=== PATIENT | male | born 1955 | race Caucasian/White ===

== ENCOUNTER 2016-12-05 13:27 | Emergency (ER) | payer BC, OTHER ==
[2016-12-05] MEDS ORDERED: VANCOMYCIN HCL INJ 1000 MG VIAL IV ONE (16:09)
--- NOTE | 2016-12-05 16:13 | ER Document Report ---
ED Medical Screen (RME) - General TRAVEL OUTSIDE OF THE U.S. IN LAST 30 DAYS: No - General Chief Complaint: Leg Injury Stated Complaint: LEG INJURY Time Seen by Provider: 12/05/16 15:49 Notes: 61-year-old male presented emergency department for bone protruding through his left AKA. Patient states he had an AKA on his left knee in May 2016. 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 Patient's primary care physician is at the [place] clinic. [facility]. Patient's surgery was completed by Dr. Wilson in [place]. (CONNIE LANGE) Past Medical History Renal/ Medical History: Denies: Hx Peritoneal Dialysis Physical Exam - Vital signs Vitals: Temp Pulse Resp BP Pulse Ox 97.8 F 85 18 111/73 98 12/05/16 14:08 12/05/16 14:08 12/05/16 14:08 12/05/16 14:08 12/05/16 14:08 - Notes Notes: GENERAL: Alert, interacts well. No acute distress. LUNGS: No respiratory distress. HEART: Regular rate. EXTREMITIES: Left AKA, small amount of bone protruding, serous discharge, tenderness to palpation with minimal erythema. (CONNIE LANGE) Course - Consults Dr. Cintron Time consulted: 15:50 - Re-evaluation Re-evalutation: 12/05/16 16:39 Surgery was initially performed by Dr. Rivera at [facility]. Dr. Cintron is happy to care for this patient however for the best outcome for being able to continue to use the prosthesis he recommends transfer to the person who did the original surgery. If the person who did the original surgery he is unwilling or unable to see him Dr. Cintron is happy to see the patient instead. Additionally he is happy to discuss the patient further with the original surgeon. Patient and family agreement with transfer. I did discuss this with Dr. Del Valle who will be care of the patient on the main part of the emergency department (ARIES ZACARIAS) - Vital Signs Vital signs: Temp Pulse Resp BP Pulse Ox 97.8 F 85 18 111/73 98 12/05/16 14:08 12/05/16 14:08 12/05/16 14:08 12/05/16 14:08 12/05/16 14:08 - Consults Dr. Cintron Reason for consultation: 12/05/16 15:[address] Cintron about patient; he will come down to the emergency department to evaluate patient. 12/05/16 16:00 Dr. Cintron evaluated patient; states he should be transferred to where he had his surgery done. (CONNIE LANEG) Scribe Documentation - Scribe Written by Scribe:: Natalya Field, 12/05/2016, 16:16 acting as scribe for DrRadha:: Keyonna
[2016-12-05 16:48] LABS: ABSOLUTE BASOPHILS # (AUTO) 0.1 10^3/uL (0.0-0.2); ABSOLUTE EOSINOPHILS # (AUTO) 0.5 10^3/uL (0.0-0.6); ABSOLUTE LYMPHOCYTES (AUTO) 4.3 10^3/uL (0.5-4.7); ABSOLUTE NEUT (AUTO) 10.2 10^3/uL (1.7-8.2); BASOPHILS % (AUTO) 0.8 % (0-2); EOSINOPHILS % (AUTO) 3.1 % (0-6); HEMATOCRIT 43.3 % (37.9-51.0); HEMOGLOBIN 14.3 g/dL (13.5-17.0); HGB HCT DIFFERENCE -0.4; LYMPHOCYTES % (AUTO) 26.4 % (13-45); MEAN CORPUSCULAR HEMOGLOBIN 30.1 pg (27.0-33.4); MEAN CORPUSCULAR VOLUME 91 fl (80-97); MONOCYTES % (AUTO) 6.4 % (3-13); RED BLOOD COUNT 4.74 10^6/uL (4.35-5.55); RED CELL DISTRIBUTION WIDTH 15.7 % (11.5-14.0); SEGMENTED NEUTROPHILS % (AUTO) 63.3 % (42-78); WHITE BLOOD COUNT 16.2 10^3/uL (4.0-10.5)
[2016-12-05] MEDS ORDERED: NORMAL SALINE 1000 ML 1,000 ML IV ONE (16:56)
[2016-12-05] MEDS ORDERED: AMPICILLIN SOD/SULBACTAM 3 GM VIAL IV ONE (16:56)
[2016-12-05 18:00] LABS: ALANINE AMINOTRANSFERASE 24 U/L (21-72); ALBUMIN 4.5 g/dL (3.5-5.0); ALKALINE PHOSPHATASE 101 U/L (38-126); ANION GAP 12 (5-19); ASPARTATE AMINO TRANSFERASE 21 U/L (17-59); BILIRUBIN,DIRECT 0.5 mg/dL (0.0-0.4); BILIRUBIN,TOTAL 0.6 mg/dL (0.2-1.3); BLOOD UREA NITROGEN 14 mg/dL (7-20); CALCIUM 9.8 mg/dL (8.4-10.2); CARBON DIOXIDE 22 mmol/L (22-30); CHLORIDE 102 mmol/L (98-107); CREATININE RESULT 0.95 mg/dL (0.52-1.25); GLUCOSE 90 mg/dL (75-110); POTASSIUM 5.1 mmol/L (3.6-5.0); SODIUM 136.4 mmol/L (137-145); TOTAL PROTEIN 8.3 g/dL (6.3-8.2)
[2016-12-05] MEDS ORDERED: MORPHINE SULFATE 10 MG/ML INJ IV PRN (18:19)
[2016-12-05] MEDS ORDERED: ONDANSETRON HCL INJ/PF 4 MG/2 ML SDV IV PRN (18:19)
--- NOTE | 2016-12-05 18:23 | ER Document Report ---
ED General - General Chief Complaint: Leg Injury Stated Complaint: LEG INJURY Time Seen by Provider: 12/05/16 15:49 TRAVEL OUTSIDE OF THE U.S. IN LAST 30 DAYS: No - HPI Patient complains to provider of: Leg infection Notes: Patient with a history of a above the knee amputation in May 2016. Patient states that approximately 2 days prior to arrival a bone spur approved through the end of his stump now has some signs of purulent drainage. Patient was referred to his primary care physician who referred the patient to the ER. Patient denies fever chills nausea vomiting denies any other trauma. - Related Data Allergies/Adverse Reactions: No Known Allergies Allergy (Verified 12/05/16 17:18) Past Medical History - Social History Smoking Status: Unknown if Ever Smoked Family History: Reviewed & Not Pertinent Patient has suicidal ideation: No Patient has homicidal ideation: No Renal/ Medical History: Denies: Hx Peritoneal Dialysis Review of Systems - Review of Systems Constitutional: No symptoms reported EENT: No symptoms reported Cardiovascular: No symptoms reported Respiratory: No symptoms reported Gastrointestinal: No symptoms reported Genitourinary: No symptoms reported Male Genitourinary: No symptoms reported Musculoskeletal: Other - infected AKA stump Skin: No symptoms reported Hematologic/Lymphatic: No symptoms reported Neurological/Psychological: No symptoms reported Physical Exam - Vital signs Vitals: Temp Pulse Resp BP Pulse Ox 97.8 F 85 18 111/73 98 12/05/16 14:08 12/05/16 14:08 12/05/16 14:08 12/05/16 14:08 12/05/16 14:08 Interpretation: Normal - General General appearance: Appears well, Alert - HEENT Head: Normocephalic, Atraumatic Eyes: Normal Pupils: PERRL - Respiratory Respiratory status: No respiratory distress Chest status: Nontender Breath sounds: Normal Chest palpation: Normal - Cardiovascular Rhythm: Regular Heart sounds: Normal auscultation Murmur: No - Abdominal Inspection: Normal Distension: No distension Bowel sounds: Normal Tenderness: Nontender Organomegaly: No organomegaly - Back Back: Normal, Nontender - Extremities General upper extremity: Normal inspection, Nontender, Normal color, Normal ROM , Normal temperature General lower extremity: Nontender, Normal color, Normal ROM, Normal temperature , Normal weight bearing. No: Normal inspection - Patient has a small bone spur more likely from the femur coming through the end of his AKA with surrounding erythema at this time I cannot express any purulent drainage, Marysol's sign - Neurological Neuro grossly intact: Yes Cognition: Normal Orientation: AAOx4 [place] Coma Scale Eye Opening: Spontaneous [place] Coma Scale Verbal: Oriented [place] Coma Scale Motor: Obeys Commands [place] Coma Scale Total: 15 Speech: Normal Motor strength normal: LUE, RUE, LLE, RLE Sensory: Normal - Psychological Associated symptoms: Normal affect, Normal mood - Skin Skin Temperature: Warm Skin Moisture: Dry Skin Color: Normal Course - Re-evaluation Re-evalutation: 12/05/16 19:36 Patient was initially seen in triage the triage doctor had our surgeon, and evaluate the patient recommended patient be transferred back to [facility] the site of the patient's previous surgery. I did discuss the patient's case with agreed to accept the patient for transfer and further evaluation. Patient was given vancomycin and Unasyn for antibiotic coverage blood cultures and wound cultures were obtained. Patient will remain n.p.o. - Vital Signs Vital signs: Temp Pulse Resp BP Pulse Ox 97.7 F 78 20 121/76 98 12/05/16 18:37 12/05/16 18:37 12/05/16 18:37 12/05/16 18:37 12/05/16 18:37 - Laboratory Result Diagrams: 12/05/16 16:05 12/05/16 17:40 Laboratory results interpreted by me: 12/05/16 12/05/16 16:05 17:40 WBC 16.2 H RDW 15.7 H Absolute Neutrophils 10.2 H Sodium 136.4 L Potassium 5.1 H Direct Bilirubin 0.5 H Total Protein 8.3 H Discharge - Discharge Clinical Impression: Infection of amputation stump of left lower extremity, Bone exposure of amputation stump Condition: Good Disposition: [facility]
--- NOTE | 2016-12-05 18:23 | CONSULTATION REPORT E ---
Consultation Report NAME: ZO QUIROZ : 1955 AGE: 61Y DATE: TO: ANA MALONE M.D. FROM: Zack NEGRO, Requesting Physician REASON FOR CONSULTATION: Patient with partially exposed left femoral bone in a left AKA. HISTORY OF PRESENT ILLNESS: This is a 61-year-old male who underwent left above knee amputation about a year ago in [facility]. About 3 days ago, noted exposed left femoral bone tip on the inferior aspect. He uses a prosthesis. His past history is that he has been smoking for at least 30 years, and severe arterial insufficiency. He has had multiple operations. Stent in the right femoral artery and aortobifemoral bypass graft, and carotid endarterectomy. Denies any diabetes. ALLERGIES: None known. FAMILY HISTORY: Noncontributory. REVIEW OF SYSTEMS: He uses prosthesis to ambulate, but unable to use it because of pain excoriation of the tip of the left femur amputation site. Rest of the systems are unremarkable. PHYSICAL EXAM: GENERAL: Well-developed, well-nourished 61-year-old male, alert and oriented, in no apparent acute distress. HEENT: Neck is supple. No thyromegaly. LUNGS: Clear. HEART: Regular sinus rhythm. ABDOMEN: Soft, nontender. Has operative scars in the abdomen and in the neck. EXTREMITIES: He has a left AKA. The stump on the bottom part has an area of necrosis with exudate, about 1 cm in diameter. The bone appears to be right at this area. There is also erythema around it. IMPRESSION: Exposed left femoral bone in an AKA stump, presumed infected. Arrangements are being made for the patient to be transferred to see his original surgeon in [facility]. However, if the surgeon is not willing to take the patient, then we will be more than happy to take care of the patient here at [facility]. DICTATING PHYSICIAN: ANA MALONE M.D. [id number] PHY#: [id number] ID: [id number] JOB#: [id number] ACCT: [id number] cc:ANA MALONE M.D. >
[2016-12-05 19:54] VITALS: BP 146/98
== END 2016-12-05 20:02 | disposition short-term general hospital (02) ==
LOC: ER 13:27
DX: T87.44 Infection of amputation stump, left lower extremity (principal); Y83.5 Amputation of limb(s) as the cause of abnormal reaction of the patient, or of later complication, without mention of misadventure at the time of the procedure; M76.9 Unspecified enthesopathy, lower limb, excluding foot; Z89.612 Acquired absence of left leg above knee
CPT/HCPCS: 99284; 96361; 96365; 96367; 36415; 87040; 87070; 87205; 85025; 80053; J0295; J7030; J3370

== ENCOUNTER 2019-09-19 16:24 | Emergency (ER) | payer OTHER ==
[2019-09-19] MEDS ORDERED: VANCOMYCIN HCL INJ 1000 MG VIAL IV ONE (16:48)
[2019-09-19] MEDS ORDERED: CEFTRIAXONE 1 GM/D5W RTU 1 GM/50 ML RTUPB IV ONE (16:49)
--- NOTE | 2019-09-19 16:51 | ER Document Report ---
ED Medical Screen (RME) - General Chief Complaint: Ankle Injury Stated Complaint: RIGHT ANKLE PAIN/HARDWARE EXPOSED Time Seen by Provider: 09/19/19 16:46 Primary Care Provider: DAYRON WILKES PA [Primary Care Provider] - Follow up as needed Notes: HPI: 64-year-old male with history of left AKA secondary to MRSA infection with a history of vascular issues in the extremities presenting for exposure of hardware used to fix a lower leg fracture in the right ankle and tib-fib region 15 to 20 years ago. Patient states that a wound over the lateral ankle has been opening and closing for several months but over the last 2 weeks has been persistent with exposure of the metal used to fix the leg. No definite fevers. Patient was seen at the [facility] today and referred over to the emergency department for evaluation. I have greeted and performed a rapid initial assessment of this patient. A comprehensive ED assessment and evaluation of the patient, analysis of test results and completion of the medical decision making process will be conducted by additional ED providers PHYSICAL EXAMINATION: GENERAL: Well-appearing, well-nourished and in mild acute distress. HEAD: Atraumatic, normocephalic. EYES: sclera anicteric, conjunctiva are normal. ENT: Moist mucous membranes. NECK: Normal range of motion LUNGS: Normal work of breathing HEART: 2+ radial pulses bilaterally ABD: limited by positioning for exam in triage. EXTREMITIES: no pitting or edema. No cyanosis. NEUROLOGICAL: No focal neurological deficits. Moves the right lower extremities spontaneously and on command. PSYCH: Normal mood, normal affect. SKIN: Warm, Dry, normal turgor, there is an open wound over the lateral malleolus of the right ankle with exposure of metal. There is surrounding erythema extending approximately 5 cm diameter. No drainage noted TRAVEL OUTSIDE OF THE U.S. IN LAST 30 DAYS: No - Related Data Allergies/Adverse Reactions: No Known Allergies Allergy (Verified 12/05/16 17:18) Past Medical History - Past Medical History Cardiac Medical History: Reports: Hx Hypertension Renal/ Medical History: Denies: Hx Peritoneal Dialysis Past Surgical History: Reports: Hx Orthopedic Surgery - LLE AKA - Immunizations Hx Diphtheria, Pertussis, Tetanus Vaccination: No Physical Exam - Vital signs Vitals: Temp Pulse Resp BP Pulse Ox 98.0 F 79 20 179/105 H 96 09/19/19 16:36 09/19/19 16:36 09/19/19 16:36 09/19/19 16:36 09/19/19 16:36 Course - Vital Signs Vital signs: Temp Pulse Resp BP Pulse Ox 98.0 F 79 20 179/105 H 96 09/19/19 16:36 09/19/19 16:36 09/19/19 16:36 09/19/19 16:36 09/19/19 16:36 Doctor's Discharge - Discharge Referrals: DAYRON WILKES PA [Primary Care Provider] - Follow up as needed
[2019-09-19 17:13] LABS: ABSOLUTE EOSINOPHILS # (AUTO) 0.2 10^3/uL (0.0-0.6); ABSOLUTE MONOCYTES (AUTO) 0.7 10^3/uL (0.1-1.4); EOSINOPHILS % (AUTO) 2.5 % (0-6); HEMOGLOBIN 14.5 g/dL (13.5-17.0); TOTAL CELLS COUNTED % (AUTO) 100 %
[2019-09-19 17:28] LABS: ABSOLUTE BASOPHILS # (AUTO) 0.1 10^3/uL (0.0-0.2); ABSOLUTE NEUT (AUTO) 5.6 10^3/uL (1.7-8.2); BASOPHILS % (AUTO) 1.3 % (0-2); HEMATOCRIT 42.2 % (37.9-51.0); LYMPHOCYTES % (AUTO) 31.1 % (13-45); MEAN CORPUSCULAR HEMOGLOBIN 30.8 pg (27.0-33.4); MEAN CORPUSCULAR HGB CONC 34.3 g/dL (32.0-36.0); MEAN CORPUSCULAR VOLUME 90 fl (80-97); MONOCYTES % (AUTO) 6.9 % (3-13); PLATELET COUNT 337 10^3/uL (150-450); RED CELL DISTRIBUTION WIDTH 15.4 % (11.5-14.0); SEGMENTED NEUTROPHILS % (AUTO) 58.2 % (42-78); WHITE BLOOD COUNT 9.6 10^3/uL (4.0-10.5)
[2019-09-19 17:34] LABS: ALBUMIN 4.2 g/dL (3.5-5.0); ALKALINE PHOSPHATASE 106 U/L (38-126); ANION GAP 6 (5-19); ASPARTATE AMINO TRANSFERASE 17 U/L (17-59); BILIRUBIN,TOTAL 0.3 mg/dL (0.2-1.3); BLOOD UREA NITROGEN 13 mg/dL (7-20); C-REACTIVE PROTEIN < 5.0 mg/L (<10.0); CALCIUM 9.2 mg/dL (8.4-10.2); CARBON DIOXIDE 29 mmol/L (22-30); CHLORIDE 106 mmol/L (98-107); GLUCOSE 81 mg/dL (75-110); POTASSIUM 3.9 mmol/L (3.6-5.0); TOTAL PROTEIN 7.5 g/dL (6.3-8.2)
--- NOTE | 2019-09-19 17:39 | RADIOLOGY REPORT (SQ) ---
EXAM DESCRIPTION: ANKLE RIGHT COMPLETE COMPLETED DATE/TIME: 09/19/2019 5:28 pm REASON FOR STUDY: exposed hardware COMPARISON: None. NUMBER OF VIEWS: Three views. TECHNIQUE: AP, lateral, and oblique radiographic images acquired of the right ankle. LIMITATIONS: None. FINDINGS: MINERALIZATION: Osteopenia. BONES: Extensive deformity U related to prior trauma and internal fixation. Extensive hardware in th e tibia and fibula. No obvious osteomyelitis. JOINTS: No effusions. SOFT TISSUES: No soft tissue swelling. No foreign body. OTHER: No other significant finding. IMPRESSION: No acute fracture. Extensive bony hardware. Chronic deformity. No obvious osteomyelit is. TECHNICAL DOCUMENTATION: JOB ID: [id number] 2010 [employer]- All Rights Reserved Reading location - IP/workstation name: [email or web address]
--- NOTE | 2019-09-19 17:42 | RADIOLOGY REPORT (SQ) ---
EXAM DESCRIPTION: TIBIA FIBULA RIGHT COMPLETED DATE/TIME: 09/19/2019 5:28 pm REASON FOR STUDY: exposed hardware ankle COMPARISON: None. NUMBER OF VIEWS: 4 images of the right tibia and fibula. LIMITATIONS: No clinical information provided. FINDINGS: Status post open reduction internal fixation of distal tibia and fibular fractures. At le ast 2 upper screws are broken off related to the anterior tibial plate. No aggressive bone resorptio n along any of the hardware detected. Osteopenic. [place] lateral angulation deformity. No acute frac ture. Osteopenic. OTHER: No other significant finding. IMPRESSION: As above. No acute fracture. Old posttraumatic and postoperative changes. No suggesti on of aggressive bone resorption. TECHNICAL DOCUMENTATION: JOB ID: [id number] Reading location - IP/workstation name: [email or web address]
[2019-09-19 18:07] LABS: ERYTHROCYTE SEDIMENTATION RATE 20 mm/hr (0-20)
--- NOTE | 2019-09-19 19:08 | ER Document Report ---
ED Extremity Problem, Lower - General Chief Complaint: Ankle Injury Stated Complaint: RIGHT ANKLE PAIN/HARDWARE EXPOSED Time Seen by Provider: 09/19/19 16:46 Primary Care Provider: DAYRON WILKES PA [Primary Care Provider] - Follow up as needed Mode of Arrival: Ambulatory Information source: Patient Notes: 64-year-old man presents to the emergency room with a history of surgery involving the right ankle distal tib-fib approximately 15 years ago. During the past 2 weeks he has noticed that the lateral ankle skin has eroded and 1 of the fixation nails is showing through the tissue. Denies drainage or pain. States that he went to the [place] clinic and was directed to come to the emergency department for orthopedic referral. He denies any recent injury. TRAVEL OUTSIDE OF THE U.S. IN LAST 30 DAYS: No - Related Data Allergies/Adverse Reactions: No Known Allergies Allergy (Verified 12/05/16 17:18) Past Medical History - Social History Smoking Status: Former Smoker Family History: Reviewed & Not Pertinent Patient has suicidal ideation: No Patient has homicidal ideation: No - Past Medical History Cardiac Medical History: Reports: Hx Hypertension Renal/ Medical History: Denies: Hx Peritoneal Dialysis Past Surgical History: Reports: Hx Orthopedic Surgery - LLE AKA - Immunizations Hx Diphtheria, Pertussis, Tetanus Vaccination: No Review of Systems - Review of Systems Notes: Constitutional: Negative for fever. HENT: Negative for sore throat. Eyes: Negative for visual changes. Cardiovascular: Negative for chest pain. Respiratory: Negative for shortness of breath. Gastrointestinal: Negative for abdominal pain, vomiting or diarrhea. Genitourinary: Negative for dysuria. Musculoskeletal: + Right ankle open skin/surgical nail Skin: Negative for rash. Neurological: Negative for headaches, weakness or numbness. 10 point ROS negative except as marked above and in HPI. Physical Exam - Vital signs Vitals: Temp Pulse Resp BP Pulse Ox 98.0 F 79 20 179/105 H 96 09/19/19 16:36 09/19/19 16:36 09/19/19 16:36 09/19/19 16:36 09/19/19 16:36 - Notes Notes: PHYSICAL EXAMINATION: Physical Exam: General: Well-nourished well-developed in no acute distress HEENT: NC/AT, pupils equal round and reactive to light, MM moist,nares clear, oropharynx clear, airway patent Neck: supple, no adenopathy, no masses. Good range of motion Lungs: clear, no wheezing, no rales no rhonchi CVS: Regular rate and rhythm no murmur gallop or rub Abdomen: Soft, active, nontender, no masses, no hepatosplenomegaly Ext: Left AKA, right lateral malleolus with breakdown of skin and hardware/nail head protruding through the skin. Surrounding erythema, no drainage.. Neuro: Alert and responsive, moving all 4 extremities on command, cranial nerves intact, no focal findings PSYCH: Normal mood, normal affect. Course - Re-evaluation Re-evalutation: 09/19/19 20:15 The area of the skin breakdown is cleaned with saline Betadine and a dressing is applied. Patient and family are instructed to change the dressing daily and to follow-up with the orthopedist as instructed. Call the office on Sunday, you will be seen and the orthopedist will determine what procedure is needed. Patient and family appear to understand this plan and are in agreement. - Vital Signs Vital signs: Temp Pulse Resp BP Pulse Ox 98.0 F 79 20 179/105 H 96 09/19/19 16:36 09/19/19 16:36 09/19/19 16:36 09/19/19 16:36 09/19/19 16:36 - Laboratory Result Diagrams: 09/19/19 16:50 09/19/19 16:50 Laboratory results interpreted by me: 09/19/19 16:50 RDW 15.4 H Discharge - Discharge Clinical Impression: Complication internal fixation device such as nail, plate, or shahrzad Qualifiers: Encounter type: initial encounter Qualified Code(s): T84.9XXA - Unspecified complication of internal orthopedic prosthetic device, implant and graft, initial encounter Condition: Good Disposition: HOME, SELF-CARE Additional Instructions: You were seen with a complication from your right leg fixation device. Please change the bandage daily. Please take the antibiotic Bactrim as prescribed. Follow-up with the orthopedist on Sunday, call the office for appointment time. If you have further complications or problems you may return to the emergency department for recheck. HOME CARE INSTRUCTIONS & INFORMATION: Thank you for choosing us for your medical needs. We hope you're satisfied with the care you received. After you leave, you must properly care for your problem and, at the same time, observe its progress. Any condition can change. Some illnesses can change rapidly over hours or days. If your condition worsens, return to the Emergency Department or see your physician promptly. ABOUT YOUR X-RAYS AND EKG'S: If you had an EKG or X-rays taken, they have been read by the Emergency Physician. The X-rays and EKG's will also be read by a Radiologist or Gradall Operator within 24 hours. If discrepancies are noted, you will be notified by telephone. Please be certain the ED has a correct telephone number & address where you can be reached. Also, realize that some fractures or abnormalities do not show up on initial X-rays. If your symptoms continue, see your physician. ABOUT YOUR LABORATORY TEST: If you had laboratory tests, the results have been reviewed by the Emergency Physician. Some test results (for example cultures) may not be available for several days. You will be contacted if any test result shows you need additional treatment. Please be certain the ED has a correct telephone number and address where you can be reached. ABOUT YOUR MEDICATIONS: You will receive instructions on how to take your medicine on the prescription label you receive. Additional information may be provided by the Pharmacy. If you have questions afterwards, call the ED for clarification or further instructions. Some prescribed medications may cause drowsiness. Do not perform tasks such as driving a car or operating machinery without consulting your Pharmacist. If you feel you need a refill of pain medication, your condition will need re-evaluation. Please do not call for a refill of any medication. ABOUT YOUR SIGNATURE: Signature of this document acknowledges to followin. Understanding that you received emergency treatment and that you may be released before al medical problems are known or treated. Please be certain the ED has a correct phone number & address where you can be reached. 2. Acknowledgement that you will arrange for follow-up care as recommended. 3. Authorization for the Emergency Physician to provide information to your follow-up Physician in order to maximize your care. AT ANY TIME, IF YOUR SYMPTOMS CHANGE SIGNIFICANTLY OR WORSEN OR YOU DEVELOP NEW SYMPTOMS, RETURN TO THE EMERGENCY DEPARTMENT IMMEDIATELY FOR RE-EVALUATION. OUR GOAL IS TO PROVIDE EXCELLENT MEDICAL CARE! WE HOPE THAT WE HAVE MET YOUR EXPECTATIONS DURING YOUR EMERGENCY DEPARTMENT VISIT AND THAT YOU FEEL YOU HAVE RECEIVED EXCELLENT CARE! Prescriptions: Sulfamethoxazole/Trimethoprim [Bactrim Ds Tablet] 2 tab PO BID #14 tablet Referrals: DAYRON WILKES PA [Primary Care Provider] - Follow up as needed TACHO LUCERO DO [ACTIVE STAFF] - Follow up as needed
[2019-09-19 20:46] VITALS: BP 159/112
== END 2019-09-19 20:39 | disposition home or self-care (01) ==
LOC: ER 16:24
DX: T84.9XXA Unspecified complication of internal orthopedic prosthetic device, implant and graft, initial encounter (principal); M25.571 Pain in right ankle and joints of right foot; I10 Essential (primary) hypertension; Z87.891 Personal history of nicotine dependence; Z98.890 Other specified postprocedural states
CPT/HCPCS: 36415; 80053; 85025; 85652; 86140; 99283

== ENCOUNTER 2019-10-13 05:36 | Day surgery (SDC) | payer OTHER ==
[~2019-10-13 05:36] MED LIST: CEFAZOLIN SODIUM 2 GM in DEXTROSE 5%-WATER 100 ML IV PRN
--- NOTE | 2019-10-13 06:27 | EKG REPORT ---
SEVERITY:- BORDERLINE ECG - SINUS RHYTHM BORDERLINE T ABNORMALITIES, ANT-LAT LEADS BORDERLINE ST ELEVATION, INFERIOR LEADS : Confirmed by: Aren Nichols MD 13-Oct-2019 06:27:08
[2019-10-13] MEDS ORDERED: FENTANYL CITRATE INJ/PF 100 MCG/2 ML AMPUL ONE (06:53)
[2019-10-13] MEDS ORDERED: MIDAZOLAM 2 MG/2 ML INJ ONE (06:54)
[2019-10-13] MEDS ORDERED: PROPOFOL INJ 200 MG/20 ML VIAL IV ONE (06:54)
[2019-10-13] MEDS ORDERED: LIDOCAINE 1%/EPINEPHRINE INJ 20 ML VIAL ONE (07:14)
[2019-10-13] MEDS ORDERED: LIDOCAINE 1% INJ-PF (10 MG/ML) 30 ML SDV ONE (07:14)
[2019-10-13] MEDS ORDERED: BUPIVACAINE HCL 0.5%-EPI 1:200000 INJ/PF 30 ML VIAL ONE (07:14)
[2019-10-13] MEDS ORDERED: BUPIVACAINE HCL 0.25 % INJ/PF (2.5 MG/1 ML) 30 ML VIAL ONE (07:14)
[2019-10-13 07:24] LABS: APPEARANCE,URINE CLEAR; BILIRUBIN,URINE NEGATIVE (NEGATIVE); COLOR,URINE YELLOW; GLUCOSE, URINE NEGATIVE (NEGATIVE); KETONES,URINE NEGATIVE (NEGATIVE); LEUKOCYTE ESTERASE,URINE NEGATIVE (NEGATIVE); NITRITE,URINE NEGATIVE (NEGATIVE); PROTEIN,URINE NEGATIVE (NEGATIVE); URINE SPECIFIC GRAVITY 1.009
--- NOTE | 2019-10-13 07:45 | RADIOLOGY REPORT (SQ) ---
Chest one view on 10/13/2019 at 6:59 AM CLINICAL INDICATION: Preop removal of tissue on ankle COMPARISON: None FINDINGS: The lungs are clear. Cardiac, hilar and mediastinal contours are within normal limits. Pulmonary vascularity is within normal limits. 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 No acute bony abnormality is noted. IMPRESSION: No active disease.
[2019-10-13] MEDS ORDERED: DIPHENHYDRAMINE HCL 50 MG/ML VIAL IV PRN (07:47)
[2019-10-13] MEDS ORDERED: FENTANYL CITRATE INJ/PF 100 MCG/2 ML AMPUL IV PRN ×3 (07:47)
[2019-10-13] MEDS ORDERED: MEPERIDINE HCL/PF INJ 25 MG/1 ML DISP.SYRIN IV PRN (07:47)
[2019-10-13] MEDS ORDERED: PROMETHAZINE HCL INJ 25 MG/1 ML VIAL IV PRN ×2 (07:47)
--- NOTE | 2019-10-13 07:51 | Discharge Summary ---
Discharge Summary (SDC) - Discharge Final Diagnosis: Exposed hardware right ankle Date of Surgery: 10/13/19 Discharge Date: 10/13/19 Condition: Good Treatment or Instructions: Leave the right lower extremity dressing and splint in place until you return to the office. [facility]errals[facility] [Primary Care Provider] - Discharge Diet: Regular Respiratory Treatments at Home: Deep Breathing/Coughing Discharge Activity: Balance Activity w/Rest, No tub bath Home Care Assistance: None Needed Report the Following to Your Physician Immediately: Shortness of Breath, Fever over 101 Degrees, Drainage-Foul Smelling
--- NOTE | 2019-10-13 07:53 | Operative Report ---
Operative Report DATE OF SURGERY: 10/13/19 PREOPERATIVE DIAGNOSIS: Exposed hardware right ankle OPERATION: Hardware removal SURGEON: PALMER BARNHART ANESTHESIA: LMAC TISSUE REMOVED OR ALTERED: Cultures to microbiology. Hardware to CSS ESTIMATED BLOOD LOSS: Minimal PROCEDURE: With the patient supine on the operating table the right lower extremities prepped and draped in sterile fashion. The skin beginning over the lateral malleolus extending proximally along the distal fibula is infiltrated with a combination of Marcaine, Xylocaine, and epinephrine. Subsequent longitudinal incision was made and carried down to the underlying hardware. Ulcers were obtained. The plate and 7 screws were removed uneventfully. The wound is irrigated. Wound is closed using erupted Vicryl followed by nylon. Sterile compressive dressing and posterior plaster splint are applied. The patient was returned to the PACU in satisfactory condition.
[2019-10-13 10:20] VITALS: BP 164/100
== END 2019-10-13 10:00 | disposition home or self-care (01) ==
LOC: OROUT 05:36
PROVIDERS: ATTEND Orthopaedic Surgery
DX: T84.89XA Other specified complication of internal orthopedic prosthetic devices, implants and grafts, initial encounter (principal); Y83.8 Other surgical procedures as the cause of abnormal reaction of the patient, or of later complication, without mention of misadventure at the time of the procedure; M25.571 Pain in right ankle and joints of right foot; J44.9 Chronic obstructive pulmonary disease, unspecified; I10 Essential (primary) hypertension; Z79.899 Other long term (current) drug therapy; Z86.73 Personal history of transient ischemic attack (TIA), and cerebral infarction without residual deficits; Z87.891 Personal history of nicotine dependence
CPT/HCPCS: 87070; 87205; 87075; 81001; 71045; 93005; 93010; 20680; J2250; J3490 ×2; J0690; J3010; J7060; J2704; 1480